=== PATIENT | male | born 1985 | race Caucasian/White ===

== ENCOUNTER 2022-06-14 20:02 | Emergency (ER) | payer OTHER ==
[2022-06-14 20:58] LABS: ESTIMATED GFR 73 mL/min (>60)
== END 2022-06-14 23:58 | disposition home or self-care (01) ==
LOC: JP.ED 20:02
DX: K21.00 Gastro-esophageal reflux disease with esophagitis, without bleeding (principal); R50.9 Fever, unspecified; I10 Essential (primary) hypertension; Z79.899 Other long term (current) drug therapy; Z20.822 Contact with and (suspected) exposure to COVID-19
CPT/HCPCS: 36415; 71045; 71045-26; 80053; 82728; 83605; 83615; 84145; 84484; 85025; 85379; 85610; 85730; 86140; 93005; 93010; 99283; 99285; U0002